=== PATIENT | male | born 1940 | race Caucasian/White ===

== ENCOUNTER 2023-10-18 10:13 | Emergency (ER) | payer OTHER ==
[2023-10-18 11:01] VITALS: BP 113/62; PULSE 85; RESP 16; TEMP 98; BMI 21.2
[2023-10-18] MEDS ORDERED: IBUPROFEN 400 MG TABLET (FP) PO ONE (11:02)
[2023-10-18] MEDS: IBUPROFEN 400 MG TABLET (FP) PO ONE (11:03)
== END 2023-10-18 13:05 | disposition home or self-care (01) ==
LOC: FER 10:13
DX: M25.571 Pain in right ankle and joints of right foot (principal); M79.89 Other specified soft tissue disorders
CPT/HCPCS: 73610-TC-RT-FY; 73630-TC-RT-FY; 99283-25

== ENCOUNTER 2024-03-14 13:07 | Emergency (ER) | payer OTHER ==
[2024-03-14 13:13] VITALS: BP 122/73; PULSE 87; RESP 18; TEMP 98.2; BMI 20.7
== END 2024-03-14 15:05 | disposition home or self-care (01) ==
LOC: FER 13:07
DX: M25.511 Pain in right shoulder (principal); W19.XXXA Unspecified fall, initial encounter
CPT/HCPCS: 73030-TC-RT-FY; 99283-25